=== PATIENT | female | born 1980 | race Two or more races ===

== ENCOUNTER 2016-07-25 09:26 | Outpatient (CLI) | payer BC | END 2016-07-25 23:59 | disposition home or self-care (01) | LOC: WOU 09:26 | PROVIDERS: ATTEND Specialist | DX: L59.8 Other specified disorders of the skin and subcutaneous tissue related to radiation (principal); T86.828 Other complications of skin graft (allograft) (autograft); Z85.3 Personal history of malignant neoplasm of breast; Z90.13 Acquired absence of bilateral breasts and nipples | CPT/HCPCS: G0463 ==